=== PATIENT | female | born 1985 | race Caucasian/White ===

== ENCOUNTER 2022-03-08 08:17 | Outpatient (RCR) | payer OTHER, SELFPAY ==
[2022-02-19 09:18] VITALS: BP 124/77; PULSE 119
[2022-03-08 09:03] VITALS: BP 119/77; PULSE 90
== END 2022-04-16 10:48 | disposition home or self-care (01) ==
LOC: ANHOBOP 08:17
PROVIDERS: Visit Provider Obstetrics & Gynecology Gynecology
DX: O24.419 Gestational diabetes mellitus in pregnancy, unspecified control (principal); Z3A.34 34 weeks gestation of pregnancy; Z3A.36 36 weeks gestation of pregnancy
CPT/HCPCS: 59025

== ENCOUNTER → 2022-03-08 11:12 | Outpatient (CLI) | payer OTHER, SELFPAY ==
--- NOTE | ~2022-03-08 | US_ITS ---
EXAMINATION: US OB follow up DATE: 03/08/2022 12:00 INDICATION: Evaluate growth. Gestational diabetes. TECHNIQUE: Multiple obstetric sonographic images performed. FINDINGS: No prior studies for comparison. There is a single living fetus in breech presentation. The placenta is fundal without placenta previ a. Amniotic fluid volume is normal. ELY measures 15.2 cm cm. cardiac activity and movement is noted with a heart rate of 147 beats per minute. The following biometric data were obtained: BPD: 83mm corresponds to gestational age 33 weeks 2 days. Head circumference: 305 mm corresponds to gestational age 33 weeks 6 days. Abdominal circumference: 328 mm corresponds to gestational age 36 weeks 5 days. Femur length: 68 mm corresponds to gestational age 85 weeks 0 days. Head circumference to abdominal circumference ratio: .93 (normal range for expected gestational age i s 0.93-1.11). Estimated weight: 2719 grams +/- 408 grams using Hadlock method. IMPRESSION: 1: Single living intrauterine with an estimated gestational age of 34weeks 5days by current ultrasound measurements, with an EDC of 04/14/2022 in breech presentation. Reviewed, dictated and finalized at location A. IMPRESSION: 1: Single living intrauterine with an estimated gestational age of 34 weeks 5days by current ultrasound measurements, with an EDC of 04/14/2022 in carlyle ech presentation.
== END ==
PROVIDERS: PCP Obstetrics & Gynecology Gynecology; Visit Provider Obstetrics & Gynecology Gynecology
DX: O24.410 Gestational diabetes mellitus in pregnancy, diet controlled (principal); O09.529 Supervision of elderly multigravida, unspecified trimester; Z3A.34 34 weeks gestation of pregnancy
CPT/HCPCS: 76816

== ENCOUNTER 2022-03-18 10:50 | Outpatient (CLI) | payer OTHER, SELFPAY ==
[2022-03-18 11:19] VITALS: BP 128/85; PULSE 100
[2022-03-18 11:21] VITALS: BMI 30.9
[2022-03-18 11:25] LABS: Basophils Percent Auto 0.3 % (0.2-1.2); Eosinophils Percent Auto 0.4 % (0-4.4); Hematocrit 35.6 % (37.0-47.0); Hemoglobin 10.9 g/dL (12.0-15.0); Immature Granulocyte Absolute 0.35 K/mm3 (0.00-0.031); Immature Granulocyte Percent A 3.9 % (0-0.5); Lymphocytes Absolute Auto 1.51 K/mm3 (0.9-3.2); Lymphocytes Percent Auto 16.9 % (18.3-44.2); Mean Corpuscular HGB Conc 30.6 g/dl (32-36); Mean Corpuscular Hemoglobin 26.7 pg (26-34); Mean Corpuscular Volume 87.3 fl (80-100); Mean Platelet Volume 10.7 fl (7.4-10.4); Monocytes Absolute Auto 0.7 K/mm3 (0.1-0.6); Monocytes Percent Auto 7.7 % (2.6-8.5); Neutrophils Absolute Auto 6.3 K/mm3 (1.3-6.7); Neutrophils Percent Auto 70.8 % (45.5-73.1); Nucleated Red Blood Cells Perc 0.2 % (0.0-0.2); Platelet Count Result 229 k/mm3 (150-375); Red Blood Count 4.08 M/mm3 (4.2-5.4); Red Cell Distribution Width 16.1 % (11.5-14.5); White Blood Count 8.9 K/mm3 (4.5-10.0)
[2022-03-18 11:30] VITALS: BP 117/74; PULSE 105
[2022-03-18 11:34] VITALS: BP 128/85; PULSE 100
[2022-03-18 11:39] LABS: Creatinine Urine 19.1 mg/dL; Total Protein Urine Random 12 mg/dL; Ur Ttl Prot Creatinine Ratio 0.63 mg/mg (0-0.20)
[2022-03-18 11:39] LABS: Alanine Aminotransferase 12 U/L (6-35); Albumin Level 3.8 g/dL (3.5-5.1); Alkaline Phosphatase 174 U/L (38-126); Anion Gap 7 mmol/L (8-16); Aspartate Amino Transferase 19 U/L (14-36); Bilirubin,Total 0.2 mg/dL (0.2-1.3); Blood Urea Nitrogen 5 mg/dL (7-17); Calcium 8.7 mg/dL (8.4-10.2); Carbon Dioxide 20 mmol/L (22-30); Chloride 108 mmol/L (98-107); Estimated CRCL calculation 146 ml/min; Estimated Glomerular Filt Rate > 60; Glucose 82 mg/dL (65-110); Potassium 3.7 mmol/L (3.4-5.0); Sodium 135 mmol/L (137-145); Uric Acid 4.9 mg/dL (2.5-7.5)
[2022-03-18 11:44] LABS: Appearance Urine Clear (Clear); Bilirubin Urine Negative (Negative); Blood Urine Negative (Negative); Color Urine Yellow (Yellow); Glucose Urine UA Negative (Negative); Ketones Urine Negative (Negative); Leukocyte Esterase Ur Trace LEU/UL (NEGATIVE); Nitrate Urine Negative (Negative); Protein Urine Negative (Negative); Specific Grav Ur <= 1.005 (1.001-1.035); Urobilinogen Urine 0.2 mg/dL (<2.0)
[2022-03-18 11:45] VITALS: BP 117/77; PULSE 110
[2022-03-18 11:51] LABS: Bacteria Urine Trace /hpf; RBC Urine 0-2 /hpf (0-2); Squamous Epithelial Cell Urine Rare /hpf (Few); WBC Urine 0-3 /hpf (0-3)
--- NOTE | 2022-03-18 11:51 | PC.NURSE ---
SARAH Aranda updated with pt labs and blood pressures. SARAH ordered pt complete a 24 hour urine and schedule induction for March 25. Discharge orders received.
[2022-03-18 11:53] LABS: Add Urine Microscopic? NO
[2022-03-18 12:05] VITALS: BP 128/85; PULSE 102
[2022-03-19 15:20] VITALS: BMI 30.6
[2022-03-19 16:17] LABS: Collection Time Urine 24 HOURS
[2022-03-19 16:25] LABS: Creatinine Urine 41.1 mg/dL; Patient Weight 189 Lbs; Total Protein Urine Random 13 mg/dL
[2022-03-19 17:02] LABS: Creatinine Clearance Urine 15.2 ml/min (75-125); Total Protein Urine 24 Hr 39 mg/24hr (28-141); Total Volume 24 Hour Urine 300 ml
== END 2022-03-18 12:00 | disposition home or self-care (01) ==
LOC: ANHOBOP 10:55 → ANHOBPP 10:55
PROVIDERS: Advanced Practice Midwife; Visit Provider Obstetrics & Gynecology Gynecology
DX: O13.9 Gestational [pregnancy-induced] hypertension without significant proteinuria, unspecified trimester (principal); Z3A.00 Weeks of gestation of pregnancy not specified
CPT/HCPCS: 36415; 59025; 80053; 81003; 81050; 82570; 82575; 84156; 84550; 85025; 87086; 99199

== ENCOUNTER 2022-03-25 05:54 | Inpatient (IN) | payer OTHER, SELFPAY ==
[2022-03-25] VITALS (77 sets, daily range): BP systolic 91–150; BP diastolic 53–120; PULSE 75–133; RESP 16; TEMP 36.3–36.6; O2SAT 97–100; BMI 31.3
[2022-03-25 06:45] LABS: Basophils Absolute Auto 0.1 K/mm3 (0.0-0.1); Basophils Percent Auto 0.5 % (0.2-1.2); Eosinophils Absolute Auto 0.2 K/mm3 (0-0.3); Eosinophils Percent Auto 1.6 % (0-4.4); Hematocrit 34.5 % (37.0-47.0); Immature Granulocyte Absolute 0.39 K/mm3 (0.00-0.031); Immature Granulocyte Percent A 3.4 % (0-0.5); Lymphocytes Absolute Auto 2.18 K/mm3 (0.9-3.2); Lymphocytes Percent Auto 19.1 % (18.3-44.2); Mean Corpuscular HGB Conc 31.9 g/dl (32-36); Mean Corpuscular Hemoglobin 27.3 pg (26-34); Mean Corpuscular Volume 85.6 fl (80-100); Mean Platelet Volume 11.2 fl (7.4-10.4); Monocytes Absolute Auto 0.8 K/mm3 (0.1-0.6); Monocytes Percent Auto 7.3 % (2.6-8.5); Neutrophils Absolute Auto 7.8 K/mm3 (1.3-6.7); Neutrophils Percent Auto 68.1 % (45.5-73.1); Platelet Count Result 221 k/mm3 (150-375); Red Blood Count 4.03 M/mm3 (4.2-5.4); Red Cell Distribution Width 17.9 % (11.5-14.5); White Blood Count 11.4 K/mm3 (4.5-10.0)
[2022-03-25] MEDS: LACTATED RINGERS 1,000 ML 125 ML IV CONT ×2 (06:49→11:54)
[2022-03-25] MEDS: OXYTOCIN 30 UNITS/NS 500 ML 30 UNITS/500 ML BAG IV CONT (06:50)
--- NOTE | 2022-03-25 07:57 | PM.OBPNLAB ---
Pain Control Date/time seen: 03/25/22 07:40 Pain control: tolerating well Comments: Minimal discomfort at this time. Not feeling contractions regularly. Pelvic Exam Comments: 1cm per RN. Contractions Monitor mode: External Contraction pattern: Irregular Contraction intensity: Mild Status status: Category l Assessment and Plan Assessment: induction ongoing Comments: Discussed plan of care with Sidra and her partner. Discussed options of placing montoya balloon for cervical dilation, AROM, and pitocin. Pt desires to avoid montoya balloon at this time. Due to cervical exam, plan to increase pitocin as needed to achieve adequate contraction pattern for cervical change. Will defer AROM until a good contraction pattern is achieved and the head is well applied to the cervix.
--- NOTE | 2022-03-25 08:01 | WPDOBADMIT ---
Obstetrics - Admit Note Admission Note: record reviewed. No pertinent additions to the history and/or any subsequent changes in the physical findings that are not consistent with the expected course of the were found. Additions to the history and/or subsequent changes in the physical findings follow. None.
[2022-03-25 08:32] LABS: HIV 1/2 Ab P24 Ag Result Negative (Negative)
[2022-03-25 09:39] LABS: Glucose Point of Care 76 mg/dl (65-105)
--- NOTE | 2022-03-25 12:39 | PM.OBPNLAB ---
Pain Control Date/time seen: 03/25/22 12:39 Pain control: tolerating well Comments: Denies feeling only minimal menstrual cramping. Pelvic Exam Dilation (cm): 1 Effacement (%): 50 station: -3 Amniotic membrane status: Intact Comments: head coming down but somewhat ballotable. Contractions Monitor mode: External Contraction pattern: Irregular Contraction intensity: Mild Status status: Category ll Comments: Occasional variable decels. Assessment and Plan Pitocin rate (mU/min): 14 (Decreased to 6 mU/min after balloon placement. ) Assessment: induction ongoing Comments: Discussed plan of care with pt and options for labor augmentation. AROM deferred until making cervical change and/or head is well applied to the cervix. Pt elected for montoya balloon placement. Montoya balloon placed through internal cervical os using stylette. Inflated with 40ml sterile saline and securred to pt's thigh. Plan for low dose pitocin (max of 6ml/hr) until balloon is expelled. Will evaluate for possibility of ROM after catheter is expelled. Pt tolerated procedure well with only minimal discomfort.
[2022-03-25 14:37] LABS: Glucose Point of Care 137 mg/dl (65-105)
[2022-03-25 14:41] LABS: Rapid Plasma Reagin Non-Reactive (NonReactive)
--- NOTE | 2022-03-25 16:52 | WPDANESEPP ---
Anes - Eval Pre Procedure Procedure: labor epidural Date/Time: 03/25/22 16:52 Surgeon: felicita Pre Op Diagnosis: iol Patient Data Age: 36 Gender: F Height: 1.68 m Weight: 88 kg Last Vital Signs Temp 36.4 C 03/25/22 14:00 Pulse 114 H 03/25/22 16:30 BP 125/91 H 03/25/22 16:30 O2 Del Method Room Air 03/25/22 06:23 Allergies Allergy/AdvReac Type Severity Reaction Status Date / Time No Known Allergies Allergy Unverified 12/14/14 15:23 Home Medications Medication Instructions Recorded Confirmed Type prenat.vits,antonio,vmk-objw-emyqm 2 tablet PO DAILY 03/09/22 03/25/22 History ferrous sulfate 325 mg (65 mg 325 mg PO DAILY 03/18/22 03/25/22 History iron) tablet Laboratory Tests 03/25/22 03/25/22 03/25/22 06:34 06:34 06:34 WBC 11.4 K/mm3 H K/mm3 (4.5-10.0) RBC 4.03 M/mm3 L M/mm3 (4.2-5.4) Hgb 11.0 g/dL L g/dL (12.0-15.0) Hct 34.5 % L % (37.0-47.0) MCV 85.6 fl fl (80-100) MCH 27.3 pg pg (26-34) MCHC 31.9 g/dl L g/dl (32-36) RDW 17.9 % H % (11.5-14.5) Plt Count 221 k/mm3 k/mm3 (150-375) MPV 11.2 fl H fl (7.4-10.4) Immature Gran % (Auto) 3.4 % H % (0-0.5) Neut % (Auto) 68.1 % % (45.5-73.1) Lymph % (Auto) 19.1 % % (18.3-44.2) [place] % (Auto) 7.3 % % (2.6-8.5) Eos % (Auto) 1.6 % % (0-4.4) Baso % (Auto) 0.5 % % (0.2-1.2) Lymph # (Auto) 2.18 K/mm3 K/mm3 (0.9-3.2) [place] # (Auto) 0.8 K/mm3 H K/mm3 (0.1-0.6) Eos # (Auto) 0.2 K/mm3 K/mm3 (0-0.3) Baso # (Auto) 0.1 K/mm3 K/mm3 (0.0-0.1) Abs Immat Gran (auto) 0.39 K/mm3 H K/mm3 (0.00-0.031) Absolute Neuts (auto) 7.8 K/mm3 H K/mm3 (1.3-6.7) Absolute Nucleated RBC 0.0 K/mm3 K/mm3 (0.0-0.012) Nucleated RBC % 0.0 % % (0.0-0.2) POC Capillary Glucose RPR Non-reactive (NonReactive) HIV 1&2 Ab/P24 Ag 4thGn Negative (Negative) Blood Type Antibody Screen 03/25/22 03/25/22 03/25/22 06:34 09:35 14:30 WBC RBC Hgb Hct MCV MCH MCHC RDW Plt Count MPV Immature Gran % (Auto) Neut % (Auto) Lymph % (Auto) [place] % (Auto) Eos % (Auto) Baso % (Auto) Lymph # (Auto) [place] # (Auto) Eos # (Auto) Baso # (Auto) Abs Immat Gran (auto) Absolute Neuts (auto) Absolute Nucleated RBC Nucleated RBC % POC Capillary Glucose 76 mg/dl mg/dl 137 mg/dl H mg/dl (65-105) (65-105) RPR HIV 1&2 Ab/P24 Ag 4thGn Blood Type O Positive Antibody Screen Negative Patient hx anesthesia problems: none Family hx anesthesia problems: none Results Review: All pre-operative results and documents have been reviewed as part of the pre-operative evaluation. [facility] Family History Family History (Updated 03/09/22 @ 16:08 by Maylin Henriquez RN) Father Diabetes mellitus Heart attack Grandparent Diabetes mellitus Heart attack Daughter Sickle cell trait Social History Social History Smoking status: Never smoker Second hand tobacco smoke exposure: No Substance use: never Spiritual care concerns: No Exam Day of Procedure 03/25/22 16:52
--- NOTE | 2022-03-25 17:25 | PM.OBPNLAB ---
Pain Control Date/time seen: 03/25/22 17:20 Pain control: tolerating well Comments: Feeling increasing cramping and some back pain. Mraie balloon expelled this afternoon. Discussed AROM risks and benefits, pt desires to proceed with AROM. Pelvic Exam Dilation (cm): 4 Effacement (%): 50 station: -3 Amniotic membrane status: Ruptured Comments: head well applied to cervix. AROM performed. Moderate amount of clear fluid returned. Small amount of bloody show present. Contractions Monitor mode: External Contraction pattern: Regular Contraction intensity: Moderate Status status: Category ll Comments: Reassuring by moderate variability and accelerations. Assessment and Plan Pitocin rate (mU/min): 6 Assessment: induction ongoing Plan: continuous present management Comments: Up-titrate oxytocin PRN to achieve adequate contraction pattern. Pt plans epidural placement in the near future.
[2022-03-25 17:31] LABS: Glucose Point of Care 82 mg/dl (65-105)
[2022-03-25] MEDS: LACTATED RINGERS 1,000 ML 999 ML IV CONT ×2 (19:14→20:55)
[2022-03-25 21:34] LABS: Glucose Point of Care 78 mg/dl (65-105)
[2022-03-26] VITALS (16 sets, daily range): BP systolic 98–135; BP diastolic 57–90; PULSE 76–100; RESP 16–18; TEMP 36.2–36.6; O2SAT 98–100
--- NOTE | 2022-03-26 01:13 | PM.OBPRVD ---
OB - Delivery Note Procedure Delivery date: 03/26/22 Procedure: Events: Gestational Diabetes Induction method: Per Pitocin Protocol and Other (Cervical ripening balloon) Delivery augmentation: Rupture of Membranes Delivery monitor: External FHT and External Uterine Route of delivery: Episiotomy description: None Laceration Description: None Specimen: Yes (Placenta) Quantitative Blood Loss (ml): 100 Anesthesia type: Epidural Disposition: Floor Baby Date of : 03/26/22 Time of : 00:57 Weeks of gestation at delivery: 39 gender: Female Weight (pounds): 7 Weight (ounces): 9 presentation: vertex position: Left Occiput Anterior Placenta delivery description: Spontaneous Cord Vessel Description: 3 Vessels score one minute: 9 score five minutes: 9 Narrative: Pt progressed to complete. Began feeling rectal pressure shortly thereafter. She pushed once and brought the head to a full crown. The head delivered spontaneously with the contraction followed by the remainder of the . The was placed on the maternal abdomen and there was a spontaneous cry. After 1.5 minutes of life, the cord was doubly clamped and cut. Gentle fundal massage and cord traction was then applied and the placenta spontaneously delivered intact in kessler presentation. There were no lacerations noted and the uterine fundus remained firm.
--- NOTE | 2022-03-26 01:20 | PM.OBDSVD ---
DS: Admitting Diagnosis Discharge Date 03/28/22 Admitting Diagnosis IUP at 39 weeks. GDMA, diet controlled. DS: Discharge Diagnosis Discharge Diagnosis (1) (normal spontaneous vaginal delivery): Code(s): O80 - Encounter for full-term uncomplicated delivery Status: Acute OB - DS: Summary Hospital Course Hospital Course: Uncomplicated OB Procedures : Ultrasound OB Procedures Intrapartum: Spontaneous Vag Delivery OB Procedures: : None Peripartum Data Delivery Method: Natural Vaginal Laceration Description: None Episiotomy description: None complications: none Status at Discharge Functional status at discharge: independent ambulation Time Spent with Patient Time attestation: Total time spent providing and/or coordinating discharge services: Exam Narrative: Alert and oriented. Mood is pleasant and cooperative. Urinating without difficulty. Denies passing any large clots. Perineum with minimal edema. Const: General: no acute distress Orientation/consciousness: patient oriented x3 Limitations: no limitations Resp: Effort & Inspection: normal respiratory effort Auscultation: clear to auscultation bilaterally Cardio: Rate: regular rate GI: Inspection: normal to inspection Neuro: General: patient oriented x3 Extrem: General: normal to inspection Psych: Appearance: grossly normal Mental Status: mental status grossly normal Affect: normal affect Thought process: Normal thought process present DS: Data Data Completed and Pending Pending studies at discharge: Pending at discharge 03/26/22 01:01 Surgical [PTH] Routine Labs on day of discharge: Labs from last 24 hours 03/25/22 03/25/22 03/25/22 21:30 17:28 14:30 WBC RBC Hgb Hct MCV MCH MCHC RDW Plt Count MPV Immature Gran % (Auto) Neut % (Auto) Lymph % (Auto) [place] % (Auto) Eos % (Auto) Baso % (Auto) Lymph # (Auto) [place] # (Auto) Eos # (Auto) Baso # (Auto) Abs Immat Gran (auto) Absolute Neuts (auto) Absolute Nucleated RBC Nucleated RBC % POC Capillary Glucose 78 82 137 H RPR HIV 1&2 Ab/P24 Ag 4thGn Blood Type Antibody Screen 03/25/22 03/25/22 03/25/22 09:35 06:34 06:34 WBC RBC Hgb Hct MCV MCH MCHC RDW Plt Count MPV Immature Gran % (Auto) Neut % (Auto) Lymph % (Auto) [place] % (Auto) Eos % (Auto) Baso % (Auto) Lymph # (Auto) [place] # (Auto) Eos # (Auto) Baso # (Auto) Abs Immat Gran (auto) Absolute Neuts (auto) Absolute Nucleated RBC Nucleated RBC % POC Capillary Glucose 76 RPR HIV 1&2 Ab/P24 Ag 4thGn Negative Blood Type O Positive Antibody Screen Negative 03/25/22 03/25/22 06:34 06:34 WBC 11.4 H RBC 4.03 L Hgb 11.0 L Hct 34.5 L MCV 85.6 MCH 27.3 MCHC 31.9 L RDW 17.9 H Plt Count 221 MPV 11.2 H Immature Gran % (Auto) 3.4 H Neut % (Auto) 68.1 Lymph % (Auto) 19.1 [place] % (Auto) 7.3 Eos % (Auto) 1.6 Baso % (Auto) 0.5 Lymph # (Auto) 2.18 [place] # (Auto) 0.8 H Eos # (Auto) 0.2 Baso # (Auto) 0.1 Abs Immat Gran (auto) 0.39 H Absolute Neuts (auto) 7.8 H Absolute Nucleated RBC 0.0 Nucleated RBC % 0.0 POC Capillary Glucose RPR Non-reactive HIV 1&2 Ab/P24 Ag 4thGn Blood Type Antibody Screen Discharge Plan Discharge Attending physician on discharge: Katya Santiago Discharging Clinician: Rosi Puckett Anticipated Discharge Date/Time: 03/28/22 01:23 Patient Disposition: Home, Self-Care Activity: may shower and may drive after 2 weeks Diet: regular Discharge Instructions: Education: Mom and Baby Guide Given to: Mother Follow-Up: Call your delivering provider's office for an appointment to be seen in: 6 Weeks Mom and baby should come to the [facility] for the follow-
[2022-03-26] MEDS: OXYTOCIN 30 UNITS/NS 500 ML 30 UNITS/500 ML BAG 125 UNITS IV CONT (01:21)
[2022-03-26 05:42] LABS: Glucose 101 mg/dL (65-110)
--- NOTE | 2022-03-26 07:32 | PM.OBPNVD ---
OB - PN: Subj Subjective Date/time seen: 03/26/22 07:25 Patient comments: pain well controlled baby status: doing well and bottle feeding well [place] feeding status: exclusively bottle feeding OB - PN: Obj Data Labs CBC & Chem 7: 03/25/22 06:34 03/26/22 05:19 Labs: Laboratory Results - last 24 hr 03/25/22 03/25/22 03/25/22 06:34 06:34 06:34 Glucose POC Capillary Glucose RPR Non-reactive HIV 1&2 Ab/P24 Ag 4thGn Negative Blood Type O Positive Antibody Screen Negative 03/25/22 03/25/22 03/25/22 09:35 14:30 17:28 Glucose POC Capillary Glucose 76 137 H 82 RPR HIV 1&2 Ab/P24 Ag 4thGn Blood Type Antibody Screen 03/25/22 03/26/22 21:30 05:19 Glucose 101 POC Capillary Glucose 78 RPR HIV 1&2 Ab/P24 Ag 4thGn Blood Type Antibody Screen OB - PN A/P Plan day: 0 Plan: routine care Time Spent With Patient Time: Total time spent is greater than 50% in coordination of care (as documented) at patient's floor/unit and/or counseling patient: Review of Systems Review of Systems: All systems reviewed & are unremarkable except as noted in HPI and below Exam Narrative: Alert and oriented. Mood is pleasant and cooperative. Urinating without difficulty. Denies passing any large clots. Perineum with minimal edema. Const: General: no acute distress Resp: Effort & Inspection: normal respiratory effort GI: Inspection: normal to inspection Neuro: General: patient oriented x3 Extrem: General: normal to inspection Psych: Appearance: grossly normal Mental Status: mental status grossly normal Affect: normal affect Thought process: Normal thought process present
[2022-03-26] MEDS: IBUPROFEN 600 MG TABLET PO (09:02)
[2022-03-26] MEDS: DOCUSATE SODIUM 100 MG CAPSULE PO (09:02)
[2022-03-27 00:30] VITALS: BP 113/64; PULSE 88; RESP 18; TEMP 36.6; O2SAT 99
[2022-03-27] MEDS: IBUPROFEN 600 MG TABLET PO ×2 (04:19→11:11)
[2022-03-27 05:04] LABS: Hematocrit 33.3 % (37.0-47.0); Hemoglobin 10.2 g/dL (12.0-15.0)
--- NOTE | 2022-03-27 07:32 | WPDANLDPN2 ---
Anes-Prog Note L&D Date/Time: 03/27/22 07:32 Comfortable throughout: labor and delivery Neuraxial method: epidural Epidural/Spinal procedure site: clean & non-tender Neuro status: Neuro function grossly intact. Cardiovascular status: normal Respiratory status: normal Airway patency: baseline Mental status: baseline Post-Op hydration status: normal Vital Signs: Last Vital Signs Temp 36.6 C 03/27/22 00:30 Pulse 88 03/27/22 00:30 Resp 18 03/27/22 00:30 BP 113/64 03/27/22 00:30 Pulse Ox 99 03/27/22 00:30 O2 Del Method Room Air 03/26/22 20:00 Pain score (VAS): 10/15 Post-procedural complaints: none Patient feedback: Patient satisfied with anesthetic care.
--- NOTE | 2022-03-27 08:00 | PC.NURSE ---
Pt introductions made and plan of care discussed per post , pain management, bottle feeding, daily care and pending discharge to home. PT received discharge instructions per one to one discussion, mom baby care guide and demonstrations this shift. PT and father of baby both recipients of such instructions. No barriers to learning identified at this time and pt verbalized understanding of such care.
[2022-03-27 08:15] VITALS: BP 138/74; PULSE 82; RESP 16; TEMP 36.3; O2SAT 99
--- NOTE | 2022-03-27 10:22 | PM.OBPNVD ---
OB - PN: Subj Subjective Date/time seen: 03/27/22 0755 Patient comments: no complaints and pain well controlled baby status: doing well and bottle feeding well feeding status: exclusively bottle feeding OB - PN: Obj Data Labs CBC & Chem 7: 03/27/22 04:22 03/26/22 05:19 Labs: Laboratory Results - last 24 hr 03/27/22 04:22 Hgb 10.2 L Hct 33.3 L OB - PN A/P Plan day: 1 Plan: discharge home Comments: Desires DC home today. Plan for 6 week PP visit. Desires Lyletta IUD at 10 wk PP Time Spent With Patient Time: Total time spent is greater than 50% in coordination of care (as documented) at patient's floor/unit and/or counseling patient: Review of Systems Review of Systems: All systems reviewed & are unremarkable except as noted in HPI and below Exam Narrative: Alert and oriented. Mood is pleasant and cooperative. Urinating without difficulty. Denies passing any large clots. Perineum with minimal edema. Const: General: no acute distress Orientation/consciousness: patient oriented x3 Limitations: no limitations Resp: Effort & Inspection: normal respiratory effort Auscultation: clear to auscultation bilaterally Cardio: Rate: regular rate GI: Inspection: normal to inspection Neuro: General: patient oriented x3 Extrem: General: normal to inspection Psych: Appearance: grossly normal Mental Status: mental status grossly normal Affect: normal affect Thought process: Normal thought process present
[2022-03-27] MEDS: ACETAMINOPHEN 325 MG TABLET 650 MG PO (11:10)
[2022-03-27 11:12] VITALS: PULSE 82; RESP 16; O2SAT 99
[2022-03-27] MEDS: FERROUS SULFATE 324 MG TABLET PO (11:12)
[2022-03-27] MEDS: DOCUSATE SODIUM 100 MG CAPSULE PO (11:12)
--- NOTE | 2022-03-27 11:45 | PC.NURSE ---
Pt receive discharge instructions per protocol and verbalized understanding of such care.
--- NOTE | 2022-03-27 12:16 | PC.NURSE ---
Pt discharged to home ambulatory accompanied by spouse and and taken to waiting car. Follow up appts confirmed
--- NOTE | 2022-03-28 16:04 | PC.NURSE ---
0470 I was running behind this morning with previous appt and pt could not wait to be seen Physicians office notified
== END 2022-03-27 12:16 | disposition home or self-care (01) | DRG 807 ==
LOC: ANHLDR 03-26 01:24 → ANHOB2 03-27 07:30 → ANHLDR 03-28 10:07 → ANHOB2 03-28 10:07
PROVIDERS: Obstetrics & Gynecology Gynecology; Admitting Provider Advanced Practice Midwife; Visit Provider Advanced Practice Midwife
DX: O24.420 Gestational diabetes mellitus in childbirth, diet controlled (principal); Z37.0 Single live birth; Z3A.39 39 weeks gestation of pregnancy; O36.8330 Maternal care for abnormalities of the fetal heart rate or rhythm, third trimester, not applicable or unspecified
CPT/HCPCS: 36415; 82947; 82948; 85014; 85018; 85025; 86592; 86703; 86850; 86900; 86901; 88307; A9270; G0432; J2590; J2795; J7120